=== PATIENT | male | born 1965 | race Caucasian/White ===

== ENCOUNTER 2021-06-11 16:52 | Outpatient (CLI) | payer OTHER, SELFPAY ==
--- NOTE | ~2021-06-11 | XR_ITS ---
EXAMINATION: XR chest 2V EXAM DATE: 06/11/2021 17:10 INDICATION: RT sided chest pain x 3mo. post COVID . TECHNIQUE: Frontal and lateral projections of the chest obtained and reviewed. Comparison is made to prior examination from 04/06/2018. FINDINGS: The lungs are clear. There are no pleural effusions. The cardiomediastinal silhouette is within normal limits. There is no pneumothorax suspected. The bones and soft tissues are unremarkab le. Possible moderate-sized gastroesophageal hiatal hernia. IMPRESSION: No acute cardiopulmonary findings. Possible moderate gastroesophageal hiatal hernia. Reviewed, dictated and finalized at location A. GER MOLECULAR IMPRESSION: No acute cardiopulmonary findings. Possible moderate gastroesophage al hiatal hernia.
[2021-06-11 17:24] LABS: Basophils Absolute Auto 0.11 K/mm3 (0.00-0.10); Basophils Percent Auto 1.3 % (0.0-1.0); Eosinophils Absolute Auto 0.24 K/mm3 (0.02-0.50); Eosinophils Percent Auto 2.9 % (1.0-6.0); Hematocrit 41.4 % (40.0-54.0); Hemoglobin 13.6 g/dL (14.0-18.0); Immature Granulocyte Absolute 0.11 K/mm3 (0.00-0.00); Immature Granulocyte Percent A 1.3 % (0.0-0.0); Lymphocytes Absolute Auto 2.24 K/mm3 (1.10-4.50); Lymphocytes Percent Auto 27.1 % (18.0-42.0); Mean Corpuscular HGB Conc 32.9 g/dL (32.0-36.0); Mean Corpuscular Hemoglobin 32.5 pg (27.0-31.0); Mean Corpuscular Volume 98.8 fL (78.0-102.0); Mean Platelet Volume 10.2 fl (8.7-11.0); Monocytes Absolute Auto 0.92 K/mm3 (0.10-0.90); Monocytes Percent Auto 11.1 % (2.0-11.0); Neutrophils Absolute Auto 4.7 K/mm3 (1.7-7.2); Neutrophils Percent Auto 56.3 % (50.0-70.0); Platelet Count Result 212 K/mm3 (150-420); Red Blood Count 4.19 M/mm3 (4.70-6.10); Red Cell Distribution Width 14.6 % (11.6-14.4); White Blood Count 8.3 K/mm3 (4.8-10.8)
[2021-06-11 17:35] LABS: Add Urine Microscopic? NO; Appearance Urine Clear (Clear); Bilirubin Urine Negative (Negative); Blood Urine Negative (Negative); Color Urine Yellow (Yellow); Glucose Urine UA Negative (Negative); Ketones Urine Negative (Negative); Leukocyte Esterase Ur Negative (Negative); Nitrate Urine Negative (Negative); Protein Urine Negative (Negative); Specific Grav Ur >= 1.030 (1.010-1.020); Urobilinogen Urine 0.2 mg/dL (0.2-1.0); pH Urine 5.5 (5.0-8.0)
[2021-06-11 17:42] LABS: Creatinine Urine 220.43 mg/dL (40-278); MALB Creatinine Ratio 5.9 mg/g (0-30); Microalbumin Urine Random 13.1 mg/L
[2021-06-11 17:54] LABS: Alanine Aminotransferase 24 U/L (16-63); Albumin Level 4.1 g/dL (3.4-5.0); Alkaline Phosphatase 52 U/L (46-116); Amylase 54 U/L (25-115); Anion Gap 11 mmol/L (8-16); Aspartate Amino Transferase 25 U/L (15-37); Bilirubin,Total 0.3 mg/dL (0.00-1.00); Blood Urea Nitrogen 20 mg/dL (7-18); Calcium 9.2 mg/dL (8.5-10.1); Carbon Dioxide 27 mmol/L (21-32); Chloride 104 mmol/L (98-108); Estimated Glomerular Filt Rate > 60; Glucose 101 mg/dL (70-99); Lipase 166 U/L (73-393); Osmolality Calculated 296 mOsm/kg (285-295); Potassium 3.7 mmol/L (3.5-5.1); Prostate Specific Antigen 1.1 ng/mL (< OR = 4.0); Sodium 142 mmol/L (136-145); Thyroid Stimulating Hormone 1.32 uIU/mL (0.36-3.74); Total Protein 7.4 g/dL (6.4-8.2); Uric Acid 3.9 mg/dL (3.5-7.2)
== END 2021-06-11 16:53 | disposition home or self-care (01) ==
LOC: CHSLAB 16:57
PROVIDERS: PCP Family Medicine; Visit Provider Family Medicine
DX: R10.84 Generalized abdominal pain (principal); Z12.5 Encounter for screening for malignant neoplasm of prostate; I10 Essential (primary) hypertension; M1A.9XX0 Chronic gout, unspecified, without tophus (tophi); R07.89 Other chest pain
CPT/HCPCS: 36415; 71046; 80053; 81003; 82043; 82150; 83690; 84153; 84443; 84550; 85025; G0103

== ENCOUNTER 2021-06-22 11:21 | Outpatient (CLI) | payer OTHER, SELFPAY | END 2021-06-22 11:22 | disposition home or self-care (01) | LOC: CHSIMG 11:23 → CHSCARD 11:24 | PROVIDERS: PCP Family Medicine; Visit Provider Family Medicine | DX: R07.89 Other chest pain (principal) | CPT/HCPCS: 94060; 94726; 94729 ==

== ENCOUNTER → 2021-07-21 00:18 | Outpatient (CLI) | payer OTHER, SELFPAY ==
[2021-07-21 11:20] LABS: SARS-CoV-2 RNA PCR Negative
== END ==
PROVIDERS: PCP Family Medicine; Visit Provider Internal Medicine Gastroenterology
DX: Z01.812 Encounter for preprocedural laboratory examination (principal); Z20.822 Contact with and (suspected) exposure to COVID-19
CPT/HCPCS: C9803; U0003; U0005

== ENCOUNTER 2021-07-25 00:43 | Day surgery (SDC) | payer OTHER, SELFPAY ==
[2021-07-11 13:26] VITALS: BMI 29.5
[2021-07-25 07:52] VITALS: BP 156/87; PULSE 89; RESP 19; TEMP 36.6; O2SAT 98; BMI 29.2
[2021-07-25] MEDS: LACTATED RINGERS 1,000 ML 150 ML IV CONT (07:54)
--- NOTE | 2021-07-25 08:12 | P.PNAN_ITS ---
Anes - Initial Pre Proc Eval Procedure: Operation Date: 07/25/21 09:15 Proposed Procedures p Screening Colonoscopy - Burton Ernst MD Date/Time: 07/25/21 08:12 Surgeon: Burton Ernst MD Pre Op Diagnosis: neoplasm screening Patient Data Age: 56 Gender: M Height: 1.88 m Weight: 103.4 kg Last Vital Signs Temp 36.6 C 07/25/21 07:52 Pulse 89 07/25/21 07:52 Resp 19 07/25/21 07:52 BP 156/87 H 07/25/21 07:52 Pulse Ox 98 07/25/21 07:52 Allergies Allergy/AdvReac Type Severity Reaction Status Date / Time No Known Allergies Allergy Verified 07/25/21 07:51 Home Medications Medication Instructions Recorded Confirmed Type albuterol 8.5 g INHALATION QID PRN 07/11/21 07/25/21 History allopurinol 300 mg PO DAILY 07/11/21 07/25/21 History citalopram 40 mg PO DAILY 07/11/21 07/25/21 History fenofibrate 160 mg PO DAILY 07/11/21 07/25/21 History fluticasone propionate 100 mcg BYMOUTH BID 07/11/21 07/25/21 History hydrochlorothiazide 25 mg PO DAILY 07/11/21 07/25/21 History losartan 100 mg PO DAILY 07/11/21 07/25/21 History omeprazole 40 mg PO DAILY 07/11/21 07/25/21 History Patient hx anesthesia problems: none Family hx anesthesia problems: none Results Review: All pre-operative results and documents have been reviewed as part of the pre-operative evaluation. [facility] Past Medical History Medical History (Updated 07/25/21 @ 08:14 by Rosendo Jain MD) Asthma Gout HTN (hypertension) Hyperlipidemia Overweight (BMI 25.0-29.9) Social History Social History Years smoked: 20 Smoking status: Current every day smoker Tobacco type: cigarettes Alcohol intake: current Drinks per week: 6 Substance use: never Substance use type: does not use Living arrangements: with friend(s) Spiritual care concerns: No Anes - Eval Final PreProcedure Day of Procedure 07/25/21 08:12 Patient weight: overweight Heart: regular rate and rhythm Lungs: clear to auscultation and normal air movement Airway: Mallampati scale class II Neurological: alert and oriented Last oral intake: >/= 8 hours ASA classification: II Emergent: no Anesthetic plan: proceed Anesthesia type and monitoring: general GIVS Results Review: All pre-operative results and documents have been reviewed as part of the pre-operative evaluation. Informed Consent: The patient's anesthetic plan and its attendant risks and benefits were discussed with the patient/family/POA. Questions were solicited and answers provided to the satisfaction of the patient/family/POA.
--- NOTE | 2021-07-25 09:09 | PM.HPGS ---
History of Present Illness History of Present Illness Consent: Risks, benefits, and alternatives have been discussed and questions answered. Patient agrees to proceed with procedure. Chief complaint: neoplasm screening Narrative: Ruperto Hoover is a 56 year old male here for first screening colonoscopy Review of Systems Constitutional: Constitutional: Denies headache(s) and Denies weakness Eyes: Eyes: Denies blurry vision ENT: Reports Normal hearing present, Denies headache(s) and Denies neck pain Cardiovascular: Cardiovascular: Denies chest pain and Denies dyspnea Respiratory: Respiratory: Denies dyspnea Gastrointestinal: Gastrointestinal: Reports no additional gastrointestinal complaints Genitourinary: Genitourinary: Denies dysuria Musculoskeletal: Musculoskeletal: Denies neck pain Integumentary/Breasts: Skin/Breast: Denies dry skin Neurologic: Reports Normal hearing present, Denies headache(s) and Denies weakness Psychiatric: Psychiatric: Denies anxiety Endocrine: Endocrine: Denies change in body appearance Hematologic/Lymphatic: Hematologic/Lymphatic: Denies easy bleeding Allergic/Immunologic: Allergic/Immunologic: Denies urticaria PMFSH Past Medical History Medical History (Updated 07/25/21 @ 09:10 by Burton Ernst MD) Asthma Colon cancer screening Gout HTN (hypertension) Hyperlipidemia Overweight (BMI 25.0-29.9) Social History Social History Years smoked: 20 Smoking status: Current every day smoker Tobacco type: cigarettes Alcohol intake: current Drinks per week: 6 Substance use: never Substance use type: does not use Living arrangements: with friend(s) Spiritual care concerns: No Meds Home Medications and Allergies Home Medications Medication Instructions Recorded Confirmed Type albuterol 8.5 g INHALATION QID PRN 07/11/21 07/25/21 History allopurinol 300 mg PO DAILY 07/11/21 07/25/21 History citalopram 40 mg PO DAILY 07/11/21 07/25/21 History fenofibrate 160 mg PO DAILY 07/11/21 07/25/21 History fluticasone propionate 100 mcg BYMOUTH BID 07/11/21 07/25/21 History hydrochlorothiazide 25 mg PO DAILY 07/11/21 07/25/21 History losartan 100 mg PO DAILY 07/11/21 07/25/21 History omeprazole 40 mg PO DAILY 07/11/21 07/25/21 History Allergies Allergy/AdvReac Type Severity Reaction Status Date / Time No Known Allergies Allergy Verified 07/25/21 07:51 Vital Signs Vital Signs - 24 hr 07/25/21 07:52 Temperature 98 F Pulse Rate 89 Respiratory Rate 19 Blood Pressure 156/87 H Pulse Oximetry 98 Exam Const: General: comfortable and no acute distress HENMT: General nose exam: Normal nares present Eyes: General: appearance normal, both eyes and all related structures Neck: Neck: no JVD Resp: Auscultation: clear to auscultation bilaterally Cardio: Rate: regular rate Rhythm: regular rhythm GI: Inspection: non-distended GI Palp: Yes Soft to palpation Skin: General skin exam: normal color Neuro: General: gait normal Speech: normal speech Extrem: General: normal to inspection Psych: Mental Status: mental status grossly normal Assessment and Plan Assessment and plan (1) Colon cancer screening: Code(s): Z12.11 - Encounter for screening for malignant neoplasm of colon Status: Acute Assessment and Plan: colonoscopy
[2021-07-25 09:34] VITALS: BP 112/79; PULSE 76; RESP 25; O2SAT 97
[2021-07-25 09:44] VITALS: BP 115/77; PULSE 65; RESP 21; O2SAT 97
[2021-07-25 09:54] VITALS: BP 126/81; PULSE 67; RESP 23; O2SAT 99
== END 2021-07-25 10:04 | disposition home or self-care (01) ==
PROVIDERS: PCP Family Medicine; Visit Provider Internal Medicine Gastroenterology
PROC: 0DJD8ZZ Inspection of Lower Intestinal Tract, Via Natural or Artificial Opening Endoscopic (ICD-10-PCS; CPT 45378; principal; 2021-07-25 09:15)
DX: Z12.11 Encounter for screening for malignant neoplasm of colon (principal); D12.2 Benign neoplasm of ascending colon; D12.5 Benign neoplasm of sigmoid colon; K57.30 Diverticulosis of large intestine without perforation or abscess without bleeding; K64.8 Other hemorrhoids; I10 Essential (primary) hypertension; E78.5 Hyperlipidemia, unspecified; J45.909 Unspecified asthma, uncomplicated; M10.9 Gout, unspecified; Z79.51 Long term (current) use of inhaled steroids; F17.210 Nicotine dependence, cigarettes, uncomplicated
CPT/HCPCS: 45385; 88305; J2704; J7120

== ENCOUNTER 2023-01-23 11:57 | Outpatient (CLI) | payer OTHER, SELFPAY ==
--- NOTE | ~2023-01-23 | XR_ITS ---
EXAMINATION: XR foot LT min 3V DATE: 01/23/2023 12:16 INDICATION: Left foot pain TECHNIQUE: Dorsoplantar, lateral, and 2 oblique views of the left foot were obtained. COMPARISON: 07/27/2015 FINDINGS: There is mild hallux valgus at the first metatarsophalangeal joint. There is no fracture. T here is mild osteoarthritis of multiple interphalangeal joints. IMPRESSION: 1. No acute osseous abnormality. Reviewed, dictated and finalized at location F.
--- NOTE | ~2023-01-23 | XR_ITS ---
EXAMINATION: XR foot RT min 3V DATE: 01/23/2023 12:16 INDICATION: Right foot pain TECHNIQUE: Dorsoplantar, lateral, and 2 oblique views of the right foot were obtained. COMPARISON: 07/27/2015 FINDINGS: Mild hallux valgus is again noted. There are minimal unchanged erosions in the medial head of the first metatarsal. Minimal erosion is also noted in the medial base of the first proximal phala nx. There is mild polyarticular osteoarthritis. The soft tissues are unremarkable. There is no fractu re. IMPRESSION: 1. Changes of the first metatarsal and medial base of the first proximal phalanx, consistent with gou t. Reviewed, dictated and finalized at location F. IMPRESSION: 1. Changes of the first metatarsal and medial base of the first proximal phalan x, consistent with gout.
== END 2023-01-23 11:58 | disposition home or self-care (01) ==
LOC: CHSIMG 11:59
PROVIDERS: PCP Family Medicine; Visit Provider Family Medicine
DX: M79.673 Pain in unspecified foot (principal)
CPT/HCPCS: 73630

== ENCOUNTER 2023-03-17 10:46 | Outpatient (RCR) | payer OTHER, SELFPAY ==
--- NOTE | 2023-03-17 13:29 | OPREHPOC ---
Outpatient Therapy Plan of Care This is a Multidisciplinary Plan of Care that may contain components documented by all disciplines (PT, OT, and ST.) PT Problem 1 PT Problem #1 Knowledge Deficit PT Goal 1 Goal Patient to demonstrate independence with HEP Target Visit 4 PT Problem 2 PT Problem #2 Pain PT Goal 1 Goal Patient to report highest pain at 4/10 Target Visit 8 PT Problem 3 PT Problem #3 Impaired Range of Motion PT Goal 1 Goal 1. Patient to demonstrate 15 deg of B ankle DF to improve stair navigation 2. Patient to demonstrate 70 deg of B great toe extension to improve gait mechanincs Target Visit 8 PT Problem 4 PT Problem #4 Impaired Functional Mobil PT Goal 1 Goal 1. Patient to improve LEFS by 20% 2. Patient to report ability to stand for >30 minutes to complete house hold tasks with no increase in pain Target Visit 8
--- NOTE | 2023-03-17 13:29 | PTOPEVAL1 ---
Assessment and note entered by Crista Waterman DPT Evaluation Information Assessment Status Evaluation Diagnosis B foot pain Onset 03/10/23 Subjective Information Patient reports for the last few years he has had B foot pain with L>R. He reports that pain has been chronic for the past few years. He reports pain is at the big toe. He reports he also has a history of gout. He reports pain is worse with stair navigation and standing for long periods of time. He reports he has gotten toe spacers but has not tried them yet. He is not currently working and is stationary most of the day. Reported Pain Level Pain Score 7,6: Self Report Assessment PT Clinical Summary Mr. Hoover is a 57 year old male who presents to PT with B foot pain. Patient demonstrate decreased great toe extension, impaired foot posture and impaired gait mechanics impairing his ability to complete house hold tasks, ambulate prolonged periods, and standing for prolonged periods of time. He would benefit from skilled PT to address impairments and return to PLOF. Plan of Care Interventions Electrical Stimulation,Gait Training,Hot Pack/Cold Pack,Manual Therapy,Neuro Re-education,Patient/ Caregiver Educati,Therapeutic Activities, Therapeutic Exercise PT Services Indicated Yes Treatment Frequency and 2x weekly for 8 visits Duration These treatments will address the objective and functional deficits as defined above. The patient will be advanced safely and appropriately in order for the patient to progress towards his/her prior level of function. Additional exercises will be introduced and as well as a comprehensive home exercise program upon discharge, if needed, ?to ensure carryover of functional gains achieved in the clinic. This treatment plan has been reviewed and agreement upon by the patient.
== END 2023-03-17 20:00 | disposition home or self-care (01) ==
LOC: CHSPT 10:46
PROVIDERS: Visit Provider Orthopaedic Surgery
DX: M79.673 Pain in unspecified foot (principal); M21.619 Bunion of unspecified foot
CPT/HCPCS: 97110; 97161

== ENCOUNTER 2023-04-30 13:13 | Outpatient (CLI) | payer OTHER, SELFPAY ==
--- NOTE | 2023-04-30 14:00 | NEURO_ITS ---
Impression: # Complains of balance dysfunction. # Neuropathy of axonal type. # Needle/EMG exam mildly neurogenic. Nerve Conduction Studies Anti Sensory Summary Table Stim Site NR Peak (ms) P-T Amp (?V) Site1 Site2 Delta-P (ms) Dist (cm) Luis (m/s) Left Saphenous Anti Sensory (Ant Med Mall) 14cm 3.9 6.6 14cm Ant Med Mall 3.9 0.0 Right Saphenous Anti Sensory (Ant Med Mall) 14cm 3.7 16.3 14cm Ant Med Mall 3.7 0.0 Left Sup Fibular Anti Sensory (Ant Lat Mall) 14 cm 3.9 5.1 14 cm Ant Lat Mall 3.9 16.0 41 Right Sup Fibular Anti Sensory (Ant Lat Mall) 14 cm 3.8 12.6 14 cm Ant Lat Mall 3.8 16.0 42 Left Sural Anti Sensory (Lat Mall) Calf 4.1 21.8 Calf Lat Mall 4.1 16.0 39 Right Sural Anti Sensory (Lat Mall) Calf 4.0 17.8 Calf Lat Mall 4.0 16.0 40 Motor Summary Table Stim Site NR Onset (ms) O-P Amp (mV) Site1 Site2 Delta-0 (ms) Dist (cm) Luis (m/s) Left Peroneal Motor (Vastus Med) Ankle 4.5 3.3 Popit Ankle 11.5 45.0 39 Popit 16.0 2.7 Right Peroneal Motor (Vastus Med) Ankle 4.4 5.3 Popit Ankle 11.2 43.0 38 Popit 15.6 3.7 Left Tibial Motor (Abd Aguilar Brev) Ankle 4.4 4.8 Knee Ankle 12.5 48.0 38 Knee 16.9 2.6 Right Tibial Motor (Abd Aguilar Brev) Ankle 4.8 5.6 Knee Ankle 12.0 48.0 40 Knee 16.8 3.5 F Wave Studies NR F-Lat (ms) L-R F-Lat (ms) Left Peroneal (Mrkrs) (EDB) 61.03 1.79 Right Peroneal (Mrkrs) (EDB) 62.82 1.79 Left Tibial (Mrkrs) (Abd Hallucis) 62.98 0.90 Right Tibial (Mrkrs) (Abd Hallucis) 62.08 0.90 EMG Side Muscle Nerve Root Ins Act Fibs Amp Dur Recrt Comment Right AntTibialis Dp Br Fibular L4-5 Nml Nml Nml >12ms Reduced Right Gastroc Tibial S1-2 Nml Nml Nml >12ms Reduced Right Fibularis Long Sup Br Fibular L5-S1 Nml Nml Nml >12ms Reduced Right Flex Dig Long Tibial L5-S2 Nml Nml Nml >12ms Reduced Right Ext Dig Brev Dp Br Fibular L5, S1 Nml Nml Nml >12ms Reduced Left AntTibialis Dp Br Fibular L4-5 Nml Nml Nml >12ms Reduced Left Gastroc Tibial S1-2 Nml Nml Nml >12ms Reduced Left Fibularis Long Sup Br Fibular L5-S1 Nml Nml Nml >12ms Reduced Left Flex Dig Long Tibial L5-S2 Nml Nml Nml >12ms Reduced Left Ext Dig Brev Dp Br Fibular L5, S1 Nml Nml Nml >12ms Reduced Right QuadratusFem QuadFemoris L4-5, S1 Nml Nml Nml Nml Nml Left QuadratusFem QuadFemoris L4-5, S1 Nml Nml Nml Nml Nml MTDD
== END 2023-04-30 13:14 | disposition home or self-care (01) ==
LOC: ANHNEURO 13:14
PROVIDERS: Visit Provider Orthopaedic Surgery
DX: G62.9 Polyneuropathy, unspecified (principal)
CPT/HCPCS: 95886; 95911